=== PATIENT | female | born 1940 | race Caucasian/White ===

== ENCOUNTER 2021-03-24 03:47 | Inpatient (IN) | payer MEDICARE, MEDICAID ==
[~2021-03-24] VITALS: Ht 165.1 cm; Wt 84.0 kg
[2021-03-24 05:11] LABS: HEMOGLOBIN 10.1 gm/dl (12.3-15.3); RED BLOOD COUNT 3.83 M/UL (4.00-5.10); WHITE BLOOD COUNT 5.4 K/UL (4.5-11.0)
[2021-03-24 05:52] LABS: BUN/CREATININE RATIO 30 (0-10)
[2021-03-24] MEDS ORDERED: POTASSIUM CHLO10 ME1 PO (09:38)
[2021-03-24] MEDS ORDERED: NITROGLYCERIN0.4 MG SL (09:39)
[2021-03-24] MEDS ORDERED: AMLODIPINE BES2.5 MG PO (09:39)
[2021-03-24] MEDS ORDERED: SULFAMETHOXAZO1 EACH PO (09:39)
[2021-03-24] MEDS ORDERED: FAMOTIDINE40 MG PO (09:39)
[2021-03-24] MEDS ORDERED: FUROSEMIDE20 MG PO (09:40)
[2021-03-24] MEDS ORDERED: METOPROLOL TART25 MG PO (09:40)
[2021-03-24] MEDS ORDERED: ZESTORETIC 20-1 EACH PO (09:43)
[2021-03-24] MEDS ORDERED: ZOCOR20 MG PO (09:44)
[2021-03-24] MEDS ORDERED: CLOPIDOGREL75 MG PO (09:44)
[2021-03-24] MEDS ORDERED: ISOSORBIDE MONO30 MG PO (09:44)
[2021-03-24] MEDS ORDERED: MULTIVITAMIN1 EACH PO (09:45)
[2021-03-24] MEDS ORDERED: ASPIRIN EC81 MG PO (09:45)
--- NOTE | 2021-03-24 21:38 | NUR ---
1900 pt family called and said the patient stated she did not receive a supper tray. Dayshift was gone and the kitchen was closed. The patient did have a low NA diet in at the time. The patient did not ring out and tell us this the family called to report no tray. No tray was noted in her room, the kitchen was closed so I took the patient a ham maynorwhich, 2 pks crackers 2 p/b, jello, and pudding with ice water, spoons, and straws.
[2021-03-25 06:38] LABS: HEMOGLOBIN 9.6 gm/dl (12.3-15.3); RED BLOOD COUNT 3.66 M/UL (4.00-5.10); WHITE BLOOD COUNT 4.7 K/UL (4.5-11.0)
--- NOTE | 2021-03-26 08:02 | NUR ---
PATIENT NOTED TO HAVE AN O2 SAT OF 83%. PATIENT PUT ON 4.5LNC AND CONTINOUS PULSE OXIMETRY. PATIENT NOTED TO SAT AT 92% WITH NO DISTRESS NOTED AFTER INTERVENTIONS. PROVIDER AWARE. NO NEW ORDERS.
[2021-03-27 07:07] LABS: HEMOGLOBIN 10.4 gm/dl (12.3-15.3); RED BLOOD COUNT 3.87 M/UL (4.00-5.10)
[2021-03-27 07:10] LABS: WHITE BLOOD COUNT 10.9 K/UL (4.5-11.0)
--- NOTE | 2021-03-27 14:13 | NUR ---
attepmted to call patients family per Dr. Sanders request to discuss patients code status and condition, no answer at this time. Dr. Kruse is aware of patients new onset of confusion and 3 beat run of NSVT. Will continue to monitor.
[2021-03-28 07:26] LABS: HEMOGLOBIN 8.9 gm/dl (12.3-15.3); WHITE BLOOD COUNT 10.5 K/UL (4.5-11.0)
[2021-03-28 07:27] LABS: RED BLOOD COUNT 3.36 M/UL (4.00-5.10)
[2021-03-29 07:44] LABS: RED BLOOD COUNT 3.35 M/UL (4.00-5.10)
[2021-03-29 07:45] LABS: WHITE BLOOD COUNT 13.5 K/UL (4.5-11.0)
--- NOTE | 2021-03-29 21:36 | NUR ---
0844 SPOKE WITH PT'S SON FIORDALIZA . INFORMED HIM OF HIS MOMS CHANGE OF CONDITION AND WHAT STEPS THAT WHERE TAKING TO HELP SUPPORT HER 0XYGENTATION. INFORMED HIM THAT HIS MOM IS VERY SICK AND HAD DECLINED MORING. I SPOKE AT LENGHTH WITH HIM ABOUT THE PT'S GUARDED CONDITION AND WHAT HER WISHES WHERE FOR LIFE SUPPORT AND CODE STATUS. HE STATED THAT HE AND HIS WHOLW FAMILY HAD COVID AND HE WAS AN ONLY CHILD AND WANTED EVERYTHING DONE TO SAVE HIS MOMS LIFE. I TOLD IM THAT WE WOULD BE MOVING HER TO PCU TO BE ABLE TO MONITOR HER MORE CLOSELY. HE STATED THAT HE UNDERSTOOD AND HE WOULD CALL BACK LATER.
[2021-03-30 06:03] LABS: HEMOGLOBIN 7.7 gm/dl (12.3-15.3)
[2021-03-30 06:09] LABS: RED BLOOD COUNT 2.93 M/UL (4.00-5.10); WHITE BLOOD COUNT 8.2 K/UL (4.5-11.0)
[2021-03-31 05:44] LABS: HEMOGLOBIN 8.4 gm/dl (12.3-15.3)
[2021-03-31 05:46] LABS: RED BLOOD COUNT 3.23 M/UL (4.00-5.10)
[2021-04-01 05:33] LABS: HEMOGLOBIN 8.8 gm/dl (12.3-15.3); RED BLOOD COUNT 3.31 M/UL (4.00-5.10); WHITE BLOOD COUNT 11.2 K/UL (4.5-11.0)
[2021-04-02 02:39] LABS: HEMOGLOBIN 8.2 gm/dl (12.3-15.3); RED BLOOD COUNT 3.05 M/UL (4.00-5.10)
[2021-04-02 02:55] LABS: WHITE BLOOD COUNT 30.2 K/UL (4.5-11.0)
[2021-04-03 05:57] LABS: RED BLOOD COUNT 3.06 M/UL (4.00-5.10); WHITE BLOOD COUNT 29.1 K/UL (4.5-11.0)
[2021-04-04 05:06] LABS: HEMOGLOBIN 7.5 gm/dl (12.3-15.3); RED BLOOD COUNT 2.79 M/UL (4.00-5.10); WHITE BLOOD COUNT 24.2 K/UL (4.5-11.0)
[2021-04-04 05:53] LABS: BUN/CREATININE RATIO 50 (0-10)
== END 2021-04-04 06:30 | disposition expired | DRG 871 ==
LOC: ER1 03:47 → M/S 06:44 → CCU 06:44 → CDU 06:44 → M/S 14:29 → CCU 03-29 13:57
PROVIDERS: Internal Medicine; Internal Medicine Infectious Disease; Physician Assistant; ADMIT Internal Medicine
PROC: 8E0ZXY6 Isolation (ICD-10-PCS; principal; 2021-03-24)
PROC: 3E0333Z Introduction of Anti-inflammatory into Peripheral Vein, Percutaneous Approach (ICD-10-PCS; 2021-03-24)
PROC: XW033E5 Introduction of Remdesivir Anti-infective into Peripheral Vein, Percutaneous Approach, New Technology Group 5 (ICD-10-PCS; 2021-03-24)
PROC: 5A0935A Assistance with Respiratory Ventilation, Less than 24 Consecutive Hours, High Flow/Velocity Cannula (ICD-10-PCS; 2021-03-26)
PROC: 5A09557 Assistance with Respiratory Ventilation, Greater than 96 Consecutive Hours, Continuous Positive Airway Pressure (ICD-10-PCS; 2021-03-29)
PROC: 3E033XZ Introduction of Vasopressor into Peripheral Vein, Percutaneous Approach (ICD-10-PCS; 2021-04-01)
DX: A41.9 Sepsis, unspecified organism (principal); J12.82 Pneumonia due to coronavirus disease 2019; U07.1 COVID-19; J80 Acute respiratory distress syndrome; G93.41 Metabolic encephalopathy; N17.9 Acute kidney failure, unspecified; E87.0 Hyperosmolality and hypernatremia; E87.2 Acidosis; K57.92 Diverticulitis of intestine, part unspecified, without perforation or abscess without bleeding; K92.2 Gastrointestinal hemorrhage, unspecified; I13.0 Hypertensive heart and chronic kidney disease with heart failure and stage 1 through stage 4 chronic kidney disease, or unspecified chronic kidney disease; I50.32 Chronic diastolic (congestive) heart failure; I25.10 Atherosclerotic heart disease of native coronary artery without angina pectoris; R65.20 Severe sepsis without septic shock; Z96.641 Presence of right artificial hip joint; E87.6 Hypokalemia; D64.9 Anemia, unspecified; E87.70 Fluid overload, unspecified; F41.9 Anxiety disorder, unspecified; Z66 Do not resuscitate; E66.3 Overweight; N18.30 Chronic kidney disease, stage 3 unspecified; E86.0 Dehydration; E78.5 Hyperlipidemia, unspecified; Z95.1 Presence of aortocoronary bypass graft; Z68.29 Body mass index [BMI] 29.0-29.9, adult
CPT/HCPCS: 0240U; 36415; 36600; 71045; 74018; 80048; 80053; 81001; 82550; 82553; 82728; 82803; 82962; 83036; 83605; 83690; 83735; 83874; 83880; 84484; 85025; 85379; 86140; 87040; 87081; 93005; 94640; 94660; 94664; 94760; 96372; 96374; 96376; 99285; C9113; J0171; J0248; J1100; J1644; J1650; J2060; J2185; J2270; J2543; J3486; J7030; J7070; J7120